=== PATIENT | male | born 1975 | race Caucasian/White ===

== ENCOUNTER 2019-09-02 06:54 | Inpatient (IN) | payer OTHER ==
[~2019-09-02] VITALS: Ht 177.8 cm; Wt 84.6 kg
[2019-09-02] MEDS ORDERED: LORazepam 2 MG/ML, 1ML ONE (07:20)
[2019-09-02] MEDS ORDERED: NITROGLYCERIN SINGLE TAB 0.4 MG SL ONE (07:22)
[2019-09-02] MEDS ORDERED: ASPIRIN 81 MG TABLET CHEW ONE (07:22)
[2019-09-02] MEDS ORDERED: LORazepam 2 MG/ML, 1ML IVPush ONE (07:30)
[2019-09-02] MEDS ORDERED: SODIUM CHLORIDE FLUSH 10ML SYR IVF ONE (07:30)
[2019-09-02] MEDS ORDERED: ASPIRIN 81 MG TABLET CHEW PO ONE (07:30)
[2019-09-02] MEDS ORDERED: NITROGLYCERIN SINGLE TAB 0.4 MG SL PRN ×2 (07:30→10:00)
--- NOTE | 2019-09-02 07:50 | NUR ---
PT WITH C/O CP, DESCRIBED CHEST TIGHTNESS, PT STATES PAIN STARTED THIS AM APPROX 0500. PT STATES HE FEELS THOUGH THE PAIN IS GOING THROUGH HIS L ARM AND NECK AREA ALTHOUGH STATES HE MAY HAVE INJURED HIS NECK SHOVELING SNOW THE OTHER DAY AND IS NOT SURE IF THE TWO ARE RELATED. PT WITH NO MED HX, STATES HE HAS HEART DISEASE IN THE FAMILY. PT APPEARS ANXIOUS. ERMD AT BEDSIDE, EKG REPEATEED, ST ELEVATION NOTED. ERMD PLACED CALL TO CARDIOLOGY, NO CODE CARDIAC CALLED AT THIS TIME, DETERMINED PT NOT A STEMI PT MEICATED PER MAR, PIV INITIATED. PT TO CARD MONTIOR, BP, CONT PULSE OX MONITORING.
[2019-09-02 08:13] LABS: BASOPHILS # (AUTO) 0.02 x10^3/uL (0-0.1); BASOPHILS % (AUTO) 0 % (0-1); EOSINOPHILS # (AUTO) 0.15 x10^3/uL (0-0.4); EOSINOPHILS % (AUTO) 2 % (1-7); LYMPHOCYTES # (AUTO) 1.54 x10^3/uL (1-3.4); LYMPHOCYTES % (AUTO) 18 % (22-44); MD NO; MEAN CORPUSCULAR HEMOGLOBIN 30.5 pg (27.5-34.5); MEAN CORPUSCULAR HGB CONC 33.4 g/dL (33.2-36.2); MEAN CORPUSCULAR VOLUME 91.2 fL (81-97); MONOCYTES # (AUTO) 1.19 x10^3/uL (0.2-0.8); MONOCYTES % (AUTO) 14 % (2-9); NEUTROPHILS # (AUTO) 5.92 x10^3/uL (1.8-6.8); NEUTROPHILS % (AUTO) 67 % (42-75); PLATELET COUNT 239 x10^3/uL (130-400); RED BLOOD COUNT 4.97 x10^6/uL (4.38-5.82); RED CELL DISTRIBUTION WIDTH 13.4 % (9.4-14.8)
--- NOTE | 2019-09-02 08:17 | NUR ---
PT REPORTS PAIN STILL IN CHEST POST PAIN ADMIN, REPORTS PAIN STILL 8/10 IT WAS PREVIOUSLY, PT DOES STATE SOB AND ANXIETY HAS LESSENED, WILL REPORT TO
[2019-09-02 08:23] LABS: ALBUMIN 3.7 g/dL (3.4-5.0); ANION GAP 11 mmol/L (5-15); CALCIUM 8.9 mg/dL (8.5-10.1); CHLORIDE 110 mmol/L (98-107)
[2019-09-02 08:29] LABS: ALANINE AMINOTRANSFERASE 28 U/L (12-78); ALKALINE PHOSPHATASE 96 U/L (45-117); BILIRUBIN,TOTAL 0.5 mg/dL (0.2-1.0); TOTAL PROTEIN 7.3 g/dL (6.4-8.2)
--- NOTE | 2019-09-02 08:48 | NUR ---
TROP RESULT 1.1, PT STILL WITH ACTIVE CP, WILL BEGIN HEPARIN GTT PER MD ORDER. LAB CALLED TO ADD 10A TO BLOOD IN LAB
[2019-09-02] MEDS ORDERED: HEPARIN 25,000 UNITS/500ML PMX 500 ML ONE (08:59)
[2019-09-02] MEDS ORDERED: HEPARIN 5,000 UNITS/ML, 1ML ONE ×2 (08:59→09:07)
[2019-09-02] MEDS ORDERED: HEPARIN 25,000 UNITS/500ML PMX 500 ML IV PRN ×2 (09:00)
[2019-09-02] MEDS ORDERED: HEPARIN 5,000 UNITS/ML, 1ML IV ONE ×2 (09:00)
[2019-09-02] MEDS ORDERED: HEPARIN 5,000 UNITS/ML, 1ML IV PRN ×2 (09:00)
--- NOTE | 2019-09-02 09:15 | NUR ---
HEPARIN GTT VERIFIED WITH ADDITIONAL RN, BEGAN ACS PROTOCOL
[2019-09-02] MEDS: SODIUM CHLORIDE FLUSH 10ML SYR IVF SCH ×2 (10:00→21:00)
[2019-09-02] MEDS: ASPIRIN 325 MG TABLET EC PO SCH (10:00)
[2019-09-02] MEDS ORDERED: morphine SULFATE 10 MG/ML, 1ML IV PRN (10:00)
[2019-09-02] MEDS ORDERED: METOPROLOL TARTRATE 100 MG TABLET PO SCH (10:00)
[2019-09-02 10:25] LABS: CHOL/HDL RATIO 4.3; LDL/HDL RATIO 2.6 (0.5-3.0)
[2019-09-02] MEDS ORDERED: SODIUM CHLORIDE 0.9% 1,000 ML IV SCH (10:30)
[2019-09-02] MEDS ORDERED: METOPROLOL TARTRATE 25 MG TABLET ONE (10:47)
--- NOTE | 2019-09-02 10:52 | NUR ---
PT MEDICATED PER NOV, NAD NOTED, PT REMAINS NPO FOR POSSIBLE ANGIOGRAM TODAY. NO OTHER NEEDS AT THIS TIME
--- NOTE | 2019-09-02 11:44 | NUR ---
PT SIGNED CONSENT FOR PROCEDURE, PLACED ON CHART, PROCEDURAL SEDATION FORM FILLED OUT WELL
--- NOTE | 2019-09-02 12:28 | NUR ---
PT WOULD LIKE TO HOLD OFF FOR SECOND IV UNTIL PT IS SEDATED FOR CATH PROCEDURE. TONY RN AT BEDSIDE SAID HE WOULD PLACE IV UPSTAIR.
--- NOTE | 2019-09-02 12:36 | NUR ---
PT TO [employer] WORKER AT THIS TIME
[2019-09-02] MEDS ORDERED: MIDAZOLAM 1 MG/ML, 5ML ONE (13:55)
[2019-09-02] MEDS ORDERED: TICAGRELOR 90 MG TABLET ONE (13:55)
[2019-09-02] MEDS ORDERED: VERAPAMIL 2.5 MG/ML, 2ML ONE (13:55)
[2019-09-02] MEDS ORDERED: FENTANYL PF 100 MCG/2ML ONE (13:55)
[2019-09-02] MEDS ORDERED: BIVALIRUDIN 250 MG ONE (13:55)
[2019-09-02] MEDS ORDERED: LIDOCAINE-MPF 1%, 5ML ONE (13:55)
[2019-09-02] MEDS ORDERED: HEPARIN 1,000 UNITS/ML, 10ML ONE (13:56)
[2019-09-02 15:03] VITALS: BP 113/77
[2019-09-02 15:04] VITALS: BP 113/77
[2019-09-02] MEDS ORDERED: METOPROLOL TARTRATE 25 MG TABLET PO SCH (15:04)
[2019-09-02] MEDS: SODIUM CHLORIDE 0.9% 1,000 ML IV SCH ×5 (15:23→22:40)
[2019-09-02] MEDS ORDERED: KETOROLAC 30 MG/1 ML IVPush ONE (17:00)
[2019-09-02 19:57] VITALS: BP 111/80
[2019-09-02] MEDS ORDERED: ATORVASTATIN 80 MG TABLET PO SCH (21:00)
[2019-09-03 01:41] VITALS: BP 133/94
[2019-09-03] MEDS: SODIUM CHLORIDE 0.9% 1,000 ML IV SCH ×3 (02:15→06:46)
[2019-09-03 04:56] LABS: ANION GAP 5 mmol/L (5-15); CALCIUM 8.5 mg/dL (8.5-10.1); CHLORIDE 112 mmol/L (98-107); CREATININE 0.92 mg/dL (0.7-1.3)
[2019-09-03] MEDS: ASPIRIN 325 MG TABLET EC PO SCH (06:03)
[2019-09-03 08:12] VITALS: BP 136/83
[2019-09-03] MEDS: SODIUM CHLORIDE FLUSH 10ML SYR IVF SCH ×2 (09:00→20:49)
[2019-09-03 12:34] LABS: HCT (SEDRATE) 46.5 % (39.2-51.8)
[2019-09-03 15:43] VITALS: BP 128/87
[2019-09-03 20:00] VITALS: BP 120/85
[2019-09-03] MEDS ORDERED: TEMAZEPAM 15 MG CAPSULE PO SCH (21:00)
[2019-09-04 00:38] VITALS: BP 100/64
[2019-09-04] MEDS: ASPIRIN 325 MG TABLET EC PO SCH (06:10)
[2019-09-04 07:49] VITALS: BP 126/88
[2019-09-04] MEDS: SODIUM CHLORIDE FLUSH 10ML SYR IVF SCH (09:39)
== END 2019-09-04 12:48 | disposition home or self-care (01) | DRG 281 ==
LOC: ED 09:32 → SUATTDRO 09:34 → EDIP 09:38 → 5SO 15:02 → DCLOUNGE 09-04 12:40
PROVIDERS: ADMIT Internal Medicine; ATTEND Internal Medicine
PROC: 4A023N7 Measurement of Cardiac Sampling and Pressure, Left Heart, Percutaneous Approach (ICD-10-PCS; principal; 2019-09-02)
PROC: B211YZZ Fluoroscopy of Multiple Coronary Arteries using Other Contrast (ICD-10-PCS; 2019-09-02)
PROC: B215YZZ Fluoroscopy of Left Heart using Other Contrast (ICD-10-PCS; 2019-09-02)
DX: I21.4 Non-ST elevation (NSTEMI) myocardial infarction (principal); E87.2 Acidosis; I31.9 Disease of pericardium, unspecified; I25.10 Atherosclerotic heart disease of native coronary artery without angina pectoris; Z79.82 Long term (current) use of aspirin; Z80.3 Family history of malignant neoplasm of breast; Z82.49 Family history of ischemic heart disease and other diseases of the circulatory system; Z87.891 Personal history of nicotine dependence
CPT/HCPCS: 0399T; 36415; 71045; 80048; 80053; 80061; 84484; 85025; 85520; 85651; 86038; 86140; 93005; 93306; 93458; 96374; 99156; 99157; C1769; C1894; G0378; J0583; J1644; J1885; J2250; J3010; J2060; J7030; Q9967